=== PATIENT | male | born 1950 | race Caucasian/White ===

== ENCOUNTER 2019-03-30 09:15 | Emergency (ER) | payer OTHER ==
[~2019-03-30] VITALS: Ht 175.3 cm; Wt 116.6 kg
[~2019-03-30 09:15] MED LIST: LOSA25TA32 PO; METO50TE2 PO; SIMV20TA1 PO
[2019-03-30 09:23] VITALS: BP 122/71
--- NOTE | 2019-03-30 09:26 | NUR ---
PATIENT AMBULATED TO BED 3.
--- NOTE | 2019-03-30 09:28 | NUR ---
PATIENT PRESENTS TO ED WITH C/O RECTAL BLEEDING SINCE LAST NIGHT, DENIES PAIN. HX OF DM, HTN . DENIES N/V/D; SKIN IS PINK/WARM/DRY; AAOX4 WITH EVEN AND STEADY GAIT; LUNGS CLEAR BL; HR EVEN AND REGULAR; PT DENIES ANY FEVER, CP, SOB, OR COUGH AT THIS TIME; DENIES PAIN; VSS; PATIENT POSITIONED FOR COMFORT; HOB ELEVATED; BEDRAILS UP X2; BED DOWN. ER MD MADE AWARE OF PT STATUS.
--- NOTE | 2019-03-30 09:29 | NUR ---
Patient being evaluated by DR RIVERA at bedside.
[2019-03-30 10:19] LABS: BASOPHILS # (AUTO) 0.2 K/uL (0.00-0.22); BASOPHILS % (AUTO) 2.2 % (0.0-2.0); EOSINOPHILS # (AUTO) 0.1 K/uL (0-0.4); EOSINOPHILS % (AUTO) 1.8 % (0.0-4.0); HEMATOCRIT 47.9 % (36-52); HEMOGLOBIN 16.1 g/dL (12.0-18.0); LYMPHOCYTES # (AUTO) 1.6 K/uL (2.0-11.5); LYMPHOCYTES % (AUTO) 23.3 % (20.5-51.1); MEAN CORPUSCULAR HEMOGLOBIN 31 pg (27-31); MEAN CORPUSCULAR HGB CONC 34 g/dL (33-37); MEAN CORPUSCULAR VOLUME 92.9 fL (80-94); MONOCYTES # (AUTO) 0.4 K/uL (0.8-1.0); MONOCYTES % (AUTO) 5.7 % (1.7-9.3); NEUTROPHILS # (AUTO) 4.6 K/uL (1.8-7.7); PLATELET COUNT (AUTO) 189 K/uL (140-450); RED BLOOD CELL COUNT(AUTO) 5.15 MIL/uL (4.20-6.10); RED CELL DISTRIBUTION WIDTH 13.5 % (11.6-13.7); WHITE BLOOD COUNT (AUTO) 6.8 K/uL (4.8-10.8)
[2019-03-30 10:46] VITALS: BP 122/71
--- NOTE | 2019-03-30 10:46 | NUR ---
Patient discharged TO HOME, Written and verbal after care instructions given and explained. Patient verbalized understanding. Ambulatory with steady gait. All questions addressed prior to discharge. Advised to follow up with PMD.
== END 2019-03-30 10:46 | disposition home or self-care (01) ==
LOC: MED 09:15
DX: K62.5 Hemorrhage of anus and rectum (principal); I10 Essential (primary) hypertension; E78.00 Pure hypercholesterolemia, unspecified; E78.5 Hyperlipidemia, unspecified
CPT/HCPCS: 36415; 85025; 99283